=== PATIENT | male | born 1945 | race Caucasian/White ===

== ENCOUNTER 2016-07-29 18:51 | Emergency (ER) | payer OTHER ==
[~2016-07-29] VITALS: Ht 175.3 cm; Wt 85.5 kg
[~2016-07-29 18:51] MED LIST: IBUP800T25 PO
[2016-07-29 19:05] VITALS: Ht 175.3 cm; Wt 85.5 kg
[2016-07-29] MEDS ORDERED: ACETAMINOPHEN/CODEINE #3 TAB PO ONE (19:30)
--- NOTE | 2016-07-29 20:02 | RADRPT ---
PROCEDURE: XR Wrist. CLINICAL INDICATION: Trauma, pain TECHNIQUE: AP, lateral and oblique views of the left wrist were performed. COMPARISON: No prior studies are available for comparison. FINDINGS: There is a transverse fracture of the distal radius, which appears mildly impacted, and slightly ape x volar angulated. Definite extension to the articular surfaces not identified but may be present. There is slight widening of the distal radial ulnar joint. There is a linear lucency in the trapez ium, which may be artifactual, seen only on oblique view. There is soft tissue swelling around the radius. IMPRESSION: 1. Transverse fracture through the distal radius, which appears mildly impacted and angulated. 2. Slight widening of the distal radial ulnar joint. Linear lucency in the trapezium which may be a rtifactual. RPTAT: HBST .Suleiman Sewell MD, Date Time Electronically viewed and signed by .Suleiman Sewell MD, on 07/29/2016 20:02 .T/
[2016-07-29] MEDS ORDERED: IBUP400T22 PO (20:34)
--- NOTE | 2016-07-29 20:41 | ERD ---
ER Documentation Chief Complaint Date/Time DATE: 07/29/16 TIME: 20:39 Chief Complaint Pt reports fall in L wrist at [age] with deformity HPI This 1-yhfw-sxa-year-old man sustained a mechanical fall today he complains of left wrist pain and swelling. He denies restricted range of motion, bleeding or lacerations. ROS All systems reviewed and are negative except as per history of present illness. Medications Home Meds Active Scripts Ibuprofen* (Motrin*) 400 Mg Tab, 400 MG PO Q6, #18 TAB Prov:JOHN CELESTE MD 07/29/16 Ibuprofen* (Motrin*) 800 Mg Tab, 800 MG PO Q6, #30 TAB Prov:MARISOL GODFREY NP 05/28/15 Allergies Allergies: Coded Allergies: No Known Allergy (Verified Allergy, Unknown, 01/12/07) PMhx/Soc History of Surgery: No Anesthesia Reaction: No Hx Neurological Disorder: No Hx Respiratory Disorders: No Hx Cardiac Disorders: No Hx Psychiatric Problems: No Hx Miscellaneous Medical Probl: Yes (DM) Hx Alcohol Use: No Hx Substance Use: No Hx Tobacco Use: No Smoking Status: Never smoker Physical Exam Vitals Vital Signs Date Time Temp Pulse Resp B/P Pulse Ox O2 Delivery O2 Flow Rate FiO2 07/29/16 19:05 98.9 94 16 166/72 98 Physical Exam Const: [] Alert, [id number] per Head: Atraumatic Eyes: Normal Conjunctiva ENT: Normal External Ears, Nose and Mouth. Neck: Full range of motion..~ No meningismus. Resp: Clear to auscultation bilaterally Cardio: Regular rate and rhythm, no murmurs Abd: Soft, non tender, non distended. Normal bowel sounds Skin: No petechiae or rashes Back: No midline or flank tenderness Ext: No cyanosis, or edema. Some tenderness and swelling of the left wrist and the distal radius area. There is no restricted range of motion weakness or suggestion of tendon or neurologic deficit. There is no bleeding or lacerations. Neur: Awake and alert Psych: Normal Mood and Affect Results 24 hrs Current Medications Medications (Trade) Dose Ordered Sig/Abigail Route PRN Reason Start Time Stop Time Status Last Admin Dose Admin Acetaminophen/ Codeine Phosphate (Tylenol No.3) 1 tab ONCE ONCE PO 07/29/16 19:30 07/29/16 19:31 DC 07/29/16 19:43 Procedures/MDM X-ray left wrist 3V Interpreted by me: Scaphoid: [Normal] Bones: Is an impacted fracture left distal radius Joints: [No dislocation] Foreign body: [None]. Impression-impacted left distal radius fracture without dislocation. Patient was placed in a left short arm splint and sling and patient is neurovascular intact after splint. Patient will be discharged home with instruction to follow-up with orthopedist in the next week. He is referred to her local orthopedist but is advised he may need authorization from his primary care doctor. There is no evidence of tendon or neurologic deficit or ischemia or bacterial infection. Departure Diagnosis: Primary Impression: Wrist fracture, left Encounter type: initial encounter Fracture type: closed Qualified Code: S62.102A - Wrist fracture, left, closed, initial encounter Condition: Stable Patient Instructions: Fracture, Wrist [General] Referrals: SKINNY MCGOVERN MD,IN MENDEZ Additional Instructions: Va al evans doctor/ specialista para mas evaluacon en el proximo semana. posiblemente necesita autorizado de evans doctor primario para specialista. Regresa para fiebre, o mas o nueva simptomas. JOHN CELESTE MD Jul 29, 2016 20:41
[2016-07-29 20:54] VITALS: BP 127/65; PULSE 87; RESP 16
== END 2016-07-29 20:56 | disposition home or self-care (01) ==
LOC: FTE 18:51
DX: S62.102A Fracture of unspecified carpal bone, left wrist, initial encounter for closed fracture (principal); E11.9 Type 2 diabetes mellitus without complications; W18.39XA Other fall on same level, initial encounter; Y92.9 Unspecified place or not applicable